=== PATIENT | female | born 1955 | race Caucasian/White ===

== ENCOUNTER 2016-10-10 15:54 | Emergency (ER) | payer BC ==
[2016-10-10 16:26] VITALS: BP 131/75; PULSE 58; TEMP 97.7; BMI 25.1
[2016-10-10] MEDS ORDERED: ASPIRIN 81 MG CHEWABLE TABLETS PO ONE (16:33)
--- NOTE | 2016-10-10 16:33 | PDOC ---
History of Present Illness - General History Source: Patient Exam Limitations: No Limitations <Natty Desai - Last Filed: 10/10/16 17:39> <TheronChelly Cano - Last Filed: 10/10/16 18:49> - General Chief Complaint: Pain Stated Complaint: ABDOMINAL PAIN Time Seen by Provider: 10/10/16 16:21 - History of Present Illness Initial Comments: 10/10/16 17:39 Patient is a 61 year old female with a significant past medical history of asthma, chronic back problem and h/o catheterization (no stent/no blockage) who presents to the ED with upper abdominal discomfort, diaphoresis, lightheadedness and scapular pain. Patient states that she woke up in the AM feeling uncomfortable and feeling flushed. She developed upper abdominal discomfort, lightheadedness, scapular pain and was feeling clammy patient states that she took nitroglycerin to alleviate her symptoms. Patient states that her episode lasted for few hours. She denies any chest pain during while her symptoms were presents and she denies any cp now. Patient notes that her symptoms were not alleviated. Patient states that she had a stress test and ECHO in 2011 that showed small blockage, patient had a catheterization in 2013 that showed no blockage found and no stent required as per Dr. Polk. PSH: appendectomy, C section, nasal polyps, meniscus surgery PCP - Dr. Brand Chop Saw Operator - Dr. Alaniz Ese Teacher - Dr. Polk (Natty Desai) Past History <Natty Desai - Last Filed: 10/10/16 17:39> - Past Medical History Anemia: No Asthma: Yes ("?FROM ACID REFLUX") Cancer: No Cardiac Disorders: No CVA: No COPD: No CHF: No Dementia: No Diabetes: No GI Disorders: Yes (ACID REFLUX) Disorders: No HTN: No Hypercholesterolemia: No Liver Disease: No Seizures: No Thyroid Disease: No - Surgical History Abdominal Surgery: No Appendectomy: Yes Cardiac Surgery: No Cholecystectomy: No Lung Surgery: No Neurologic Surgery: No Orthopedic Surgery: Yes (CARPAL TUNNEL RT WRIST) - Psycho/Social/Smoking Cessation Hx Anxiety: No Suicidal Ideation: No Smoking History: Former smoker Have you smoked in the past 12 months: No Number of Cigarettes Smoked Daily: 0 If you are a former smoker, when did you quit?: 16YRS AGO Information on smoking cessation initiated: No Hx Alcohol Use: No Drug/Substance Use Hx: No Substance Use Type: Alcohol Hx Substance Use Treatment: No <Chelly Crump - Last Filed: 10/10/16 18:49> - Past Medical History Allergies/Adverse Reactions: Allergies Allergy/AdvReac Type Severity Reaction Status Date / Time morphine AdvReac Severe Vomiting Verified 05/18/16 09:51 Home Medications: Ambulatory Orders Aspirin Coated [Ecotrin -] 81 mg PO DAILY 10/14/14 Beclomethasone Dipropionate [Qvar] 2 inhaler IH BID 10/14/14 Calcium Citrate/Vitamin D2 [Calcium Citrate with D Tablet] 1 each PO DAILY 10/14 Montelukast Na [Singulair -] 10 mg PO HS 10/14/14 Mv,Ca,Fe,Min/FA/Guarana/Caff [One Daily Tablet] 1 each PO DAILY 10/14/14 Nitroglycerin Patch [Nitro-Dur Patch -] 0.4 mg TD PRN PRN 10/14/14 [place]-3 Fatty Acids [Fish Oil] 300 mg PO DAILY 10/14/14 Ranitidine [Zantac -] 150 mg PO BID 10/14/14 Albuterol Sulfate [Proair Respiclick] 90 mcg IH PRN 05/11/16 Triamcinolone Acetonide [Nasacort] 16.9 ml NS HS 05/11/16 Valacyclovir HCl [Valtrex -] 500 mg PO DAILY 05/11/16 Oxycodone HCl/Acetaminophen [Percocet 5-325 mg Tablet -] 1 - 2 tab PO Q6H #50 tab MDD 8 05/18/16 Cardiac Specific PMH - Complaint Specific PMHX Pacemaker: No <Chelly Crump - Last Filed: 10/10/16 18:49> Review of Systems - Review of Systems Able to Perform ROS?: Yes <Natty Desai - Last Filed: 10/10/16 17:39> <Chelly Crump - Last Filed: 10/10/16 18:49> - Review of Systems Comments:: 10/10/16 17:40 CONSTITUTIONAL: Present: diaphoresis Absent: fever, chills, generalized weakness, malaise, loss of appetite HEENT: Absent: rhinorrhea, nasal congestion, throat pain, throat swelling, difficulty swallowing, mouth swelling, ear pain, eye pain, visual Changes CARDIOVASCULAR: Absent: chest pain, syncope, palpitations, irregular heart rate, peripheral edema RESPIRATORY: Absent: cough, shortness of breath, dyspnea with exertion, orthopnea, wheezing, stridor, hemoptysis GASTROINTESTINAL: Present: abdominal discomfort Absent: abdominal distension, nausea, vomiting, diarrhea, constipation, melena, hematochezia GENITOURINARY: Absent: dysuria, frequency, urgency, hesitancy, hematuria, flank pain, genital pain MUSCULOSKELETAL: Present: scapular pain Absent: myalgia, arthralgia, joint swelling SKIN: Absent: rash, itching, pallor HEMATOLOGIC/IMMUNOLOGIC: Absent: easy bleeding, easy bruising, lymphadenopathy, frequent infections ENDOCRINE: Absent: unexplained weight gain, unexplained weight loss, heat intolerance, cold intolerance NEUROLOGIC: Present: lightheaded Absent: headache, focal weakness or paresthesias, dizziness, unsteady gait, seizure, mental status changes, bladder or bowel incontinence PSYCHIATRIC: Absent: anxiety, depression, suicidal or homicidal ideation, hallucinations. (Natty Desai) *Physical Exam <Natty Desai - Last Filed: 10/10/16 17:39> <Chelly Crump - Last Filed: 10/10/16 18:49> - Vital Signs Last Vital Signs Temp Pulse Resp BP Pulse Ox 97.7 F 58 L 18 131/75 98 10/10/16 16:21 10/10/16 16:21 10/10/16 16:21 10/10/16 16:21 10/10/16 16:21 - Physical Exam Comments: 10/10/16 17:41 GENERAL: Well developed, well nourished. Awake and alert. No acute distress. HEENT: Normocephalic, atraumatic. PERRLA, EOMI. No conjunctival pallor. Sclera are non- icteric. Moist mucous membranes. Oropharynx is clear. NECK: Supple. Full ROM. No JVD. Carotid pulses 2+ and symmetric, without bruits. No thyromegaly. No lymphadenopathy. CARDIOVASCULAR: Regular rate and rhythm. No murmurs, rubs, or gallops. Distal pulses are 2+ and symmetric. PULMONARY: No evidence of respiratory distress. Lungs clear to auscultation bilaterally. No wheezing, rales or rhonchi. ABDOMINAL: Soft. Non-tender. Non-distended. No rebound or guarding. No organomegaly. Normoactive bowel sounds. MUSCULOSKELETAL Normal range of motion at all joints. No bony deformities or tenderness. No CVA tenderness. EXTREMITIES: No cyanosis. No clubbing. No edema. No calf tenderness. SKIN: Warm and dry. Normal capillary refill. No rashes. No jaundice. NEUROLOGICAL: Alert, awake, appropriate. Cranial nerves 2-12 intact. No deficits to light touch and temperature in face, upper extremities and lower extremities. No motor deficits in the in face, upper extremities and lower extremities. Normoreflexic in the upper and lower extremities. Normal speech. Toes are down-going bilaterally. PSYCHIATRIC: Cooperative. Good eye contact. Appropriate mood and affect. (Natty Desai) Heart Score/ECG Review <Natty Desai - Last Filed: 10/10/16 17:39> <Chelly Crump - Last Filed: 10/10/16 18:49> #1 10/10/16 17:43 Sinus bradycardia Left axis deviation Pulmonary disease pattern Vent rate 53 bpm (Natty Desai) ED Treatment Course - LABORATORY CBC & Chemistry Diagram: 10/10/16 16:56 10/10/16 16:56 <Natty Desai - Last Filed: 10/10/16 17:39> - LABORATORY CBC & Chemistry Diagram: 10/10/16 16:56 10/10/16 16:56 <Chelly Crump - Last Filed: 10/10/16 18:49> - ADDITIONAL ORDERS Additional order review: Laboratory Results 10/10/16 10/10/16 16:56 16:56 INR 0.98 D-Dimer < 200 Sodium 142 Potassium 3.7 Chloride 105 Carbon Dioxide 27 Anion Gap 10 BUN 15 Creatinine 0.7 D Creat Clearance w eGFR > 60 Random Glucose 90 Calcium 8.5 Magnesium 2.3 Total Bilirubin 0.3 D AST 21 ALT 27 Alkaline Phosphatase 80 Creatine Kinase 145 Troponin I 0.02 B-Natriuretic Peptide 159.12 H Total Protein 6.1 L Albumin 3.7 10/10/16 16:56 RBC 3.90 MCV 96.2 H MCHC 33.4 RDW 14.0 MPV 9.6 D Neutrophils % 71.0 Lymphocytes % 19.8 D Monocytes % 6.9 Eosinophils % 1.7 Basophils % 0.6 - RADIOLOGY Radiology Studies Ordered: Category Date Time Status CHEST X-RAY PORTABLE* [RAD] Stat Radiology 10/10/16 16:33 Completed - Medications Given in the ED: ED Medications Discontinued Medications Generic Name Dose Route Start Last Admin Trade Name Freq PRN Reason Stop Dose Admin Aspirin 162 mg 10/10/16 16:33 10/10/16 16:50 Asa - PO 10/10/16 16:34 162 mg ONCE ONE Administration *DC/Admit/Observation/Transfer <Natty Desai - Last Filed: 10/10/16 17:39> <Chelly Crump - Last Filed: 10/10/16 18:49> Diagnosis at time of Disposition: Scapulalgia, Atypical chest pain - Discharge Dispostion Disposition: AGAINST MEDICAL ADVICE Condition at time of disposition: Stable - Referrals Referrals: Alvin Brand MD [Primary Care Provider] - Cyril Polk MD [Staff Physician] - - Patient Instructions Printed Discharge Instructions: DI for Atypical Chest Pain Additional Instructions: please see your administrative tech as soon as possible Return if you have any further concerns
[2016-10-10] MEDS ORDERED: ASPIRIN 81 MG CHEWABLE TABLETS ONE (16:49)
[2016-10-10 17:03] LABS: BASOPHIL 0.6 % (0-2.0); EOSINOPHIL 1.7 % (0-4.5); MCH 32.1 pg (25.7-33.7); MCHC 33.4 g/dl (32.0-36.0); MEAN CELL VOLUME 96.2 fl (80-96); MEAN PLT VOLUME 9.6 fl (7.5-11.1); PLATELET COUNT 196 K/MM3 (134-434); WHITE BLOOD COUNT 9.4 K/mm3 (4.0-10.0)
[2016-10-10 17:21] LABS: INR 0.98 (0.82-1.09)
[2016-10-10 17:31] LABS: ALBUMIN 3.7 g/dl (3.4-5.0); ANION GAP 10 (8-16); BILIRUBIN,TOTAL 0.3 mg/dL (0.2-1.0); CALCIUM 8.5 mg/dL (8.5-10.1); CO2 27 mmol/L (21-32); CREATININE 0.7 mg/dL (0.55-1.02); GLUCOSE,RANDOM 90 mg/dL (74-106); MAGNESIUM 2.3 mg/dL (1.8-2.4); SGOT/AST 21 U/L (15-37); SGPT/ALT 27 U/L (12-78); TOT PROT 6.1 g/dl (6.4-8.2)
[2016-10-10 17:34] LABS: ALK PHOS 80 U/L (45-117); TROPONIN I 0.02 ng/ml (0.00-0.05)
[2016-10-10 18:20] LABS: D-DIMER < 200 ng/ml (<200-235)
--- NOTE | 2016-10-12 08:20 | EKG ---
Test Reason : Blood Pressure : / mmHG Vent. Rate : 053 BPM Atrial Rate : 053 BPM P-R Int : 190 ms QRS Dur : 084 ms QT Int : 420 ms P-R-T Axes : 051 -34 038 degrees QTc Int : 394 ms SINUS BRADYCARDIA LEFT AXIS DEVIATION ABNORMAL ECG WHEN COMPARED WITH ECG OF 09-AUG-2013 14:35, NO SIGNIFICANT CHANGE WAS FOUND Confirmed by HARRY MOSQUEDA MD ([id number]) on 10/12/2016 8:20:28 AM Referred By: Confirmed By:HARRY MOSQUEDA MD
== END 2016-10-10 19:09 | disposition left against medical advice (07) ==
LOC: SUPCPDRO 15:54 → JER 15:54
DX: R07.89 Other chest pain (principal); M89.8X1 Other specified disorders of bone, shoulder; K21.9 Gastro-esophageal reflux disease without esophagitis; Z98.61 Coronary angioplasty status
CPT/HCPCS: 36415; 71010-TC; 80053; 82550; 83735; 83880; 84484; 85025; 85379; 85610; 93005; 93010; 99284-25

== ENCOUNTER → 2019-01-09 | Day surgery (SDC) | payer OTHER, BC | LOC: JRADIR 09:54 ==

== ENCOUNTER → 2019-04-01 | Day surgery (SDC) | payer OTHER, BC ==
--- NOTE | 2019-04-04 09:53 | PATH ---
Cytology Non-Gynecological Report Patient Name: LAURA FLOWER [facility]. Rec. #: [id number] /Age/Gender: 1955 (Age: 63) / F Account: [id number] Location: RADIOLOGY INTER Taken: 04/01/2019 Received: 04/01/2019 Reported: 04/04/2019 Physicians: Edyta Jordan M.D. Specimen(s) Received LEFT THYROID FNA Clinical History Left thyroid nodule Final Diagnosis THYROID, LEFT, FINE NEEDLE ASPIRATION: SATISFACTORY FOR EVALUATION BETHESDA CLASS II: BENIGN SMALL FOLLICULAR CELLS, MACROPHAGES, AND COLLOID PRESENT, CONSISTENT WITH A BENIGN FOLLICULAR NODULE. Comment: Prior cytology ([id number]) showed atypia /follicular lesion of undetermined significance. Molecular studies (Thyroseq) results to follow as an addendum report. Electronically Signed Claudia Washington M.D. Addendum Reported: 04/04/2019 Addendum Diagnosis Received 1.5 mL Thyroseq tube. Sent to [facility] ([place], [place]) for molecular study. Claudia Washington M.D. Gross Description Received are eight direct smears, four of which are air-dried and Diff-Quik stained, and four of which are alcohol fixed and Pap stained. Also received is 20 ml of bloody formalin from which one cellblock is prepared.
== END | disposition home or self-care (01) ==
LOC: JRADIR 09:12
PROVIDERS: ATTEND Internal Medicine Endocrinology, Diabetes & Metabolism
PROC: 0G9G3ZX Drainage of Left Thyroid Gland Lobe, Percutaneous Approach, Diagnostic (ICD-10-PCS; principal; 2019-04-01)
DX: E04.1 Nontoxic single thyroid nodule (principal)
CPT/HCPCS: 10005; 76942

== ENCOUNTER 2019-07-08 10:33 | Emergency (ER) | payer OTHER, BC ==
[2019-07-08 10:44] VITALS: BP 102/75; PULSE 114; TEMP 98; BMI 25.9
--- NOTE | 2019-07-08 11:54 | PDOC ---
History of Present Illness - General Chief Complaint: Cold Symptoms Stated Complaint: INFECTION Time Seen by Provider: 07/08/19 11:06 - History of Present Illness Initial Comments: 07/08/19 11:53 63-year-old female with past medical history of asthma presents for chills and body aches x1 day she had a recent tooth extraction last week Past History - Past Medical History Allergies/Adverse Reactions: Allergies Allergy/AdvReac Type Severity Reaction Status Date / Time morphine AdvReac Severe Vomiting Verified 07/08/19 10:40 Home Medications: Ambulatory Orders Aspirin Coated [Ecotrin -] 81 mg PO DAILY 10/14/14 Beclomethasone Dipropionate [Qvar] 2 inhaler IH BID 10/14/14 Calcium Citrate/Vitamin D2 [Calcium Citrate with D Tablet] 1 each PO DAILY 10/14 Montelukast Na [Singulair -] 10 mg PO HS 10/14/14 Mv-Mins/Folic Acid/Guarana/Caf [One Daily Tablet] 1 each PO DAILY 10/14/14 Nitroglycerin Patch [Nitro-Dur Patch -] 0.4 mg TD PRN PRN 10/14/14 [place]-3 Fatty Acids [Fish Oil] 300 mg PO DAILY 10/14/14 Ranitidine [Zantac -] 150 mg PO BID 10/14/14 Albuterol Sulfate [Proair Respiclick] 90 mcg IH PRN 05/11/16 Triamcinolone Acetonide [Nasacort] 16.9 ml NS HS 05/11/16 Valacyclovir HCl [Valtrex -] 500 mg PO DAILY 05/11/16 Oxycodone HCl/Acetaminophen [Percocet 5-325 mg Tablet -] 1 - 2 tab PO Q6H #50 tab MDD 8 05/18/16 Anemia: No Asthma: Yes ("?FROM ACID REFLUX") Cancer: No Cardiac Disorders: No CVA: No COPD: No CHF: No Dementia: No Diabetes: No GI Disorders: Yes (ACID REFLUX) Disorders: No HTN: No Hypercholesterolemia: No Liver Disease: No Seizures: No Thyroid Disease: No - Surgical History Abdominal Surgery: No Appendectomy: Yes Cardiac Surgery: No Cholecystectomy: No Lung Surgery: No Neurologic Surgery: No Orthopedic Surgery: Yes (CARPAL TUNNEL RT WRIST) - Immunization History Immunization Up to Date: Yes - Psycho Social/Smoking Cessation Hx Smoking History: Former smoker Have you smoked in the past 12 months: No Number of Cigarettes Smoked Daily: 0 If you are a former smoker, when did you quit?: 16YRS AGO Information on smoking cessation initiated: No Hx Alcohol Use: No Drug/Substance Use Hx: No Substance Use Type: Alcohol Hx Substance Use Treatment: No Review of Systems - Review of Systems Constitutional: Yes: Chills, Malaise. No: Fever *Physical Exam - Vital Signs Last Vital Signs Temp Pulse Resp BP Pulse Ox 98.0 F 114 H 18 102/75 100 07/08/19 10:41 07/08/19 10:41 07/08/19 10:41 07/08/19 10:41 07/08/19 10:41 - Physical Exam 07/08/19 11:53 GENERAL: The patient is awake, alert, and fully oriented, in no acute distress. HEAD: Normal with no signs of trauma. EYES: sclera anicteric, conjunctiva clear. ENT: Ears normal tympanic membranes normal oropharynx clear uvula midline NECK: Normal range of motion LUNGS: Breath sounds equal, clear to auscultation bilaterally. No wheezes, and no crackles. HEART: S1 and S2 without murmur, rub or gallop. ABDOMEN: Soft, nontender, normoactive bowel sounds. No guarding, no rebound. No masses. EXTREMITIES: Normal range of motion, no edema. No clubbing or cyanosis. No cords, erythema, or tenderness. NEUROLOGICAL: Cranial nerves II through XII grossly intact. Normal speech, normal gait. PSYCH: Normal mood, normal affect. SKIN: Warm, Dry, normal turgor, no rashes or lesions noted. Medical Decision Making - Medical Decision Making 07/08/19 11:53 We will do a flu swab other than that there are no focal findings. 07/08/19 13:00 Influenza negative. We will have patient follow-up with primary care physician. Discharge - Discharge Information Problems reviewed: Yes Clinical Impression/Diagnosis: Viral syndrome Condition: Stable Disposition: HOME - Admission No - Follow up/Referral Referrals: Alvin Brand MD [Primary Care Provider] - - Patient Discharge Instructions Additional Instructions: Your influenza swabs are negative today. Return to the emergency room for worsening symptoms and without fail follow-up with your primary care physician in 2 to 3 days for further evaluation and treatment options. - Post Discharge Activity
== END 2019-07-08 13:19 | disposition home or self-care (01) ==
LOC: JERFT 10:33
DX: B34.9 Viral infection, unspecified (principal); K21.9 Gastro-esophageal reflux disease without esophagitis; J45.909 Unspecified asthma, uncomplicated; Z88.5 Allergy status to narcotic agent
CPT/HCPCS: 87804; 99281-25

== ENCOUNTER 2022-11-28 04:56 | Day surgery (SDC) | payer OTHER, BC ==
[2022-11-24 09:47] VITALS: BMI 24.7
[2022-11-28 10:35] VITALS: TEMP 97.5
[2022-11-28 11:11] VITALS: BP 117/62; PULSE 61; RESP 14
== END 2022-11-28 11:46 | disposition home or self-care (01) ==
LOC: JASU-ENDO 04:56
PROVIDERS: ATTEND Internal Medicine Gastroenterology
PROC: 0DBK8ZX Excision of Ascending Colon, Via Natural or Artificial Opening Endoscopic, Diagnostic (ICD-10-PCS; principal; 2022-11-28 10:00)
DX: D12.2 Benign neoplasm of ascending colon (principal); K57.30 Diverticulosis of large intestine without perforation or abscess without bleeding; K64.8 Other hemorrhoids; Z86.010 Personal history of colon polyps
CPT/HCPCS: 88305-TC

== ENCOUNTER 2023-11-15 19:29 | Emergency (ER) | payer OTHER, BC ==
[2023-11-15 19:54] VITALS: BP 104/48; PULSE 72; RESP 20; TEMP 97.9; BMI 25.2
[2023-11-15 21:20] LABS: BASO % 0.8 % (0-2.0); EOS % 2.9 % (0-4.5); HEMATOCRIT 37.5 % (32.4-45.2); HEMOGLOBIN 12.6 GM/dL (10.7-15.3); LYMPH % 25.1 % (8-40); MCH 30.3 pg (25.7-33.7); MCHC 33.6 g/dl (32.0-36.0); MEAN PLT VOLUME 8.1 fl (7.5-11.1); MONO % 9.4 % (3.8-10.2); NEUT % 61.8 % (42.8-82.8); PLATELET COUNT 315 10^3/uL (134-434); RBC 4.16 M/mm3 (3.60-5.2); RDW 14.4 % (11.6-15.6); WHITE BLOOD COUNT 8.6 K/mm3 (4.0-10.0)
[2023-11-15 21:45] LABS: POTASSIUM 4.8 mmol/L (3.5-5.1)
[2023-11-15 21:48] LABS: ALBUMIN 3.7 g/dl (3.4-5.0); BLOOD UREA NITROGEN 15.8 mg/dL (7-18); CALCIUM 9.6 mg/dL (8.5-10.1)
[2023-11-15 21:50] LABS: INR 0.93 (0.83-1.09); PROTHROMBIN TIME (PATIENT) 10.7 SEC (9.7-13.0)
[2023-11-15 21:52] LABS: BILIRUBIN,TOTAL 0.4 mg/dL (0.2-1); CREATININE 0.8 mg/dL (0.55-1.3); TOT PROT 7.4 g/dl (6.4-8.2)
[2023-11-15 21:53] LABS: ACTIVATED PTT 30.4 SECONDS (25.2-36.5)
[2023-11-15 21:56] LABS: N-TERMINAL BNP 297.8 pg/ml (5-125)
== END 2023-11-16 00:21 | disposition home or self-care (01) ==
LOC: JER 19:29
DX: R60.0 Localized edema (principal)
CPT/HCPCS: 36415; 80053; 83880; 84484; 85025; 85610; 85730; 93005; 93010; 93970-TC; 99285-25